=== PATIENT | female | born 1955 | race Caucasian/White ===

== ENCOUNTER → 2017-07-27 | Outpatient (CLI) | payer BC ==
[2017-07-27 14:34] LABS: HEMOGLOBIN 15.1 g/dL (12.2-16.2); LYMPH # 2.5 K/mm3 (0.7-4.5)
--- NOTE | 2017-07-27 15:45 | RADIOLOGY REPORT PS360 ---
CHEST(2 VIEWS-NOT PORTABLE) HISTORY: PREOP, FORMER SMOKER ORDERING PHYSICIAN: BERE PELAEZ PATIENT AGE: 61 years COMPARISON: 08/01/2014 FINDINGS: The cardiomediastinal silhouette and pulmonary vascularity are within normal limits. There is hyperinflation with hyperlucency of the lungs consistent with COPD unchanged. Mild lower thoracic scoliosis convex right. Degenerative changes thoracic spine.. IMPRESSION: COPD. No change with no acute finding
[2017-07-27 16:00] LABS: BUN 23 mg/dL (7-18)
[2017-07-27 16:03] LABS: GFR (ESTIMATED) 64 ML/MIN (59-)
== END ==
LOC: LAB 13:39
PROVIDERS: Orthopaedic Surgery
DX: Z01.818 Encounter for other preprocedural examination (principal)